=== PATIENT | male | born 1965 | race Caucasian/White ===

== ENCOUNTER → 2017-11-13 | Outpatient (CLI) | payer OTHER ==
[~2017-11-13] VITALS: Ht 190.5 cm; Wt 104.7 kg
[~2017-11-13] MED LIST: ADVIL,NUPRIN,M200 MG PO
== END | disposition home or self-care (01) ==
LOC: AMB 08:00
PROC: 0DJD8ZZ Inspection of Lower Intestinal Tract, Via Natural or Artificial Opening Endoscopic (ICD-10-PCS; principal; 2017-11-13)
DX: Z12.11 Encounter for screening for malignant neoplasm of colon (principal); K64.8 Other hemorrhoids
CPT/HCPCS: J7643